=== PATIENT | female | born 1930 | race Caucasian/White ===

== ENCOUNTER 2020-02-26 12:00 | Observation (INO) | payer MEDICARE, OTHER ==
[~2020-02-26] VITALS: Ht 157.5 cm; Wt 70.3 kg
[~2020-02-26 12:00] MED LIST: ASPI-496 PO; CHOL2000 PO; IBUP-1221 PO; LISI1TAB20 PO; LOVA40TA2 PO; MELO15TA6 PO; OXYC-302 PO; PANT40TA3 PO; VIT1TABL32 PO
--- NOTE | 2020-02-26 12:20 | NUR ---
Pt BIB [facility] for a syncopal episode, daughter states "that right before she passed out, she said everything looked yellow", pt has had multiple episodes of emesis since then, clear colored. Pt BP enoute was hypotensive, given 250mL NS and 4mg zofran en route.
[2020-02-26] MEDS ORDERED: CALC1CAP8 PO (12:26)
--- NOTE | 2020-02-26 12:27 | NUR ---
Adam Manzo MD at bs, assessing pt and discussing plan of care, Pt changed into gown, EKG completed, resting in [facility] at bs. pt given warm blanket for comfort, Fluids started per MD order. On monitor, denies additional needs, call light within reach. WCTM.
[2020-02-26] MEDS ORDERED: SODIUM CHLORIDE 0.9%, 500ML IVBOLUS ONE (12:30)
--- NOTE | 2020-02-26 13:01 | NUR ---
Cleaned with sterile water and placed bandaid on pt left wrist skin tear.
[2020-02-26 13:17] LABS: PROTHROMBIN TIME 10.6 Seconds (9.6-11.5)
[2020-02-26 13:18] LABS: ALANINE AMINOTRANSFERASE 15 U/L (12-78); ALBUMIN 3.5 g/dL (3.4-5.0); ANION GAP 8 mmol/L (5-15); CALCIUM 9.9 mg/dL (8.5-10.1); CHLORIDE 104 mmol/L (98-107); CREATININE 1.78 mg/dL (0.55-1.02)
--- NOTE | 2020-02-26 13:20 | NUR ---
pt wheeled to CT via [facility] johnson, denies additional needs, even unlabored respirations, pt making jokes on the way saying "we will see nothing in there" for her CT scan. Daughter waiting in room.
[2020-02-26 13:22] LABS: ALKALINE PHOSPHATASE 75 U/L (45-117); BILIRUBIN,TOTAL 1.1 mg/dL (0.2-1.0); TROPONIN I < 0.015 ng/mL (0.000-0.045)
--- NOTE | 2020-02-26 13:47 | NUR ---
pt back from CT via [facility] john[facility], denies additional needs, even unlabored, call light within reach. Daughter at bedside
--- NOTE | 2020-02-26 14:38 | NUR ---
Lab at bedside for blood draw, pt resting in gurney, NAD, even and unlabored respirations, call light within reach, talking in full sentences, no SOB noted. Daughter at bs. WCTM
--- NOTE | 2020-02-26 15:35 | NUR ---
pt resting in gurney, NAD, even and unlabored respirations, eyes open, call light within reach, talking in full sentences, no SOB noted. Daughter at bs. TM
[2020-02-26 15:36] LABS: BASOPHILS % (AUTO) 0 % (0-1); EOSINOPHILS % (AUTO) 0 % (1-7); LYMPHOCYTES # (AUTO) 0.66 x10^3/uL (1-3.4); LYMPHOCYTES % (AUTO) 8 % (22-44); MD NO; MEAN CORPUSCULAR HEMOGLOBIN 30.3 pg (27.0-34.8); MEAN CORPUSCULAR HGB CONC 33.2 g/dL (32.4-35.8); MEAN CORPUSCULAR VOLUME 91.3 fL (80-100); MEAN PLATELET VOLUME 7.9 fL (7.4-10.4); MONOCYTES # (AUTO) 0.26 x10^3/uL (0.2-0.8); MONOCYTES % (AUTO) 3 % (2-9); NEUTROPHILS # (AUTO) 7.74 x10^3/uL (1.8-6.8); NEUTROPHILS % (AUTO) 89 % (42-75); PLATELET COUNT 261 x10^3/uL (130-400); RED BLOOD COUNT 5.05 x10^6/uL (3.82-5.3); RED CELL DISTRIBUTION WIDTH 15.6 % (9.6-15.2)
[2020-02-26] MEDS ORDERED: POTASSIUM CHLORIDE 20 MEQ TAB.ER.PRT PO ONE (16:00)
[2020-02-26] MEDS ORDERED: SODIUM CHLORIDE 0.9% 1,000 ML IV SCH (16:20)
[2020-02-26] MEDS ORDERED: ONDANSETRON 2MG/ML, 2ML IVPush PRN (16:30)
[2020-02-26] MEDS ORDERED: ACETAMINOPHEN 325 MG TABLET PO PRN (16:30)
[2020-02-26] MEDS ORDERED: hydrALAzine 20 MG/ML, 1ML IVPush PRN (16:30)
[2020-02-26] MEDS ORDERED: LABETALOL 5MG/ML, 20ML IVPush PRN (16:30)
[2020-02-26] MEDS ORDERED: GADOTERATE 7.5 MMOL/15 ML SYR ONE (17:02)
--- NOTE | 2020-02-26 17:18 | NUR ---
pt in MRI.
[2020-02-26] MEDS: POTASSIUM CHLORIDE 20 MEQ TAB.ER.PRT PO SCH (18:32)
[2020-02-26 19:00] VITALS: BP 121/75
[2020-02-26 19:03] VITALS: BP 128/70
[2020-02-26 19:10] VITALS: BP 137/75
[2020-02-26] MEDS: HEPARIN 5,000 UNITS/ML, 1ML SQ SCH (19:43)
[2020-02-27] VITALS (7 sets, daily range): BP systolic 103–124; BP diastolic 60–68
[2020-02-27] MEDS: HEPARIN 5,000 UNITS/ML, 1ML SQ SCH ×3 (03:56→19:48)
[2020-02-27 06:16] LABS: BASOPHILS # (AUTO) 0.03 x10^3/uL (0-0.1); BASOPHILS % (AUTO) 1 % (0-1); EOSINOPHILS % (AUTO) 0 % (1-7); LYMPHOCYTES # (AUTO) 1.22 x10^3/uL (1-3.4); LYMPHOCYTES % (AUTO) 22 % (22-44); MD NO; MEAN CORPUSCULAR HEMOGLOBIN 30.2 pg (27.0-34.8); MEAN CORPUSCULAR HGB CONC 32.9 g/dL (32.4-35.8); MEAN CORPUSCULAR VOLUME 91.6 fL (80-100); MEAN PLATELET VOLUME 7.7 fL (7.4-10.4); MONOCYTES # (AUTO) 0.36 x10^3/uL (0.2-0.8); MONOCYTES % (AUTO) 7 % (2-9); NEUTROPHILS % (AUTO) 71 % (42-75); PLATELET COUNT 248 x10^3/uL (130-400); RED BLOOD COUNT 4.22 x10^6/uL (3.82-5.3); RED CELL DISTRIBUTION WIDTH 16.1 % (9.6-15.2)
[2020-02-27 06:20] LABS: ALBUMIN 2.9 g/dL (3.4-5.0); ANION GAP 4 mmol/L (5-15); CALCIUM 9.4 mg/dL (8.5-10.1); CHLORIDE 106 mmol/L (98-107)
[2020-02-27 06:24] LABS: ALANINE AMINOTRANSFERASE 12 U/L (12-78); ALKALINE PHOSPHATASE 57 U/L (45-117); BILIRUBIN,TOTAL 0.9 mg/dL (0.2-1.0); CREATININE 1.45 mg/dL (0.55-1.02); TOTAL PROTEIN 5.8 g/dL (6.4-8.2)
[2020-02-27] MEDS: PANTOPRAZOLE 40MG TABLET PO SCH (07:47)
[2020-02-27] MEDS: CALCIUM/VITAMIN D3 250-125 TABLET PO SCH (07:47)
[2020-02-27] MEDS: POTASSIUM CHLORIDE 20 MEQ TAB.ER.PRT PO SCH ×2 (07:47→16:41)
[2020-02-27] MEDS: LOVASTATIN 40 MG TABLET PO SCH (07:47)
[2020-02-27] MEDS: SODIUM CHLORIDE 0.9% 1,000 ML IV SCH ×3 (07:47→23:29)
[2020-02-27] MEDS ORDERED: SODIUM CHLORIDE 0.9% 1,000 ML IV SCH (16:20)
[2020-02-28 01:12] VITALS: BP 120/77
[2020-02-28] MEDS: HEPARIN 5,000 UNITS/ML, 1ML SQ SCH (03:57)
[2020-02-28 06:17] LABS: ALBUMIN 2.6 g/dL (3.4-5.0); ANION GAP 4 mmol/L (5-15); CALCIUM 8.6 mg/dL (8.5-10.1); CHLORIDE 109 mmol/L (98-107)
[2020-02-28 06:20] LABS: ALANINE AMINOTRANSFERASE 11 U/L (12-78); ALKALINE PHOSPHATASE 56 U/L (45-117); BILIRUBIN,TOTAL 0.8 mg/dL (0.2-1.0); CREATININE 1.01 mg/dL (0.55-1.02); TOTAL PROTEIN 5.4 g/dL (6.4-8.2)
[2020-02-28 07:16] VITALS: BP 138/81
[2020-02-28] MEDS: POTASSIUM CHLORIDE 20 MEQ TAB.ER.PRT PO SCH (08:09)
[2020-02-28] MEDS: SODIUM CHLORIDE 0.9% 1,000 ML IV SCH (08:09)
[2020-02-28] MEDS: PANTOPRAZOLE 40MG TABLET PO SCH (08:09)
[2020-02-28] MEDS: LOVASTATIN 40 MG TABLET PO SCH (08:09)
[2020-02-28] MEDS: CALCIUM/VITAMIN D3 250-125 TABLET PO SCH (08:10)
== END 2020-02-28 11:29 | disposition home or self-care (01) ==
LOC: ED 12:56 → EDIP 15:35 → INTOOBSV 15:35 → 4EST 18:06
PROVIDERS: ADMIT Internal Medicine; ATTEND Internal Medicine
DX: R55 Syncope and collapse (principal); I95.9 Hypotension, unspecified; E87.6 Hypokalemia; I12.9 Hypertensive chronic kidney disease with stage 1 through stage 4 chronic kidney disease, or unspecified chronic kidney disease; E78.5 Hyperlipidemia, unspecified; N17.9 Acute kidney failure, unspecified; K21.9 Gastro-esophageal reflux disease without esophagitis; N18.3 Chronic kidney disease, stage 3 (moderate); I67.1 Cerebral aneurysm, nonruptured; Z85.3 Personal history of malignant neoplasm of breast; Z79.899 Other long term (current) drug therapy
CPT/HCPCS: 36415; 70450; 70553; 71045; 80053; 84484; 85025; 85610; 85730; 93005; 93306; 93880; 96360; 96361; 96372; 97163; 97165; 99285; A9575; G0378; J1644; J7030; J7040

== ENCOUNTER 2020-08-01 01:21 | Observation (INO) | payer MEDICARE ==
[2020-08-01] VITALS (15 sets, daily range): BP systolic 90–145; BP diastolic 47–89
[~2020-08-01] VITALS: Ht 165.1 cm; Wt 72.7 kg
[~2020-08-01 01:21] MED LIST changes: +CALC1CAP8 PO
--- NOTE | 2020-08-01 01:29 | NUR ---
THIS IS AN 89Y F BIB EMS FROM HOME FOR "SLURRED SPEACH" STROKE SCALE NEG, PER EMS CHANGES IN EKG PT GIVEN 1 DOSE NITRO [employer] LIB[employer], AND ASA. 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 PT SYNCOPAL TODAY WHILE SEATED DENIES FALLS. PT CONNECTED TO ALL MONITORING VSS NADN. NO NEEDS AT THIS TIME
--- NOTE | 2020-08-01 01:40 | NUR ---
PIV STARTED WITHOUT DIFFICULTY PT TOLERATED WELL
--- NOTE | 2020-08-01 01:58 | NUR ---
PER DR. MORA IV OK IN L AC AT THIS TIME DOES NOT NEED TO BE REMOVED PT DAUGHTER INSISTS
[2020-08-01] MEDS ORDERED: ONDANSETRON 2MG/ML, 2ML ONE ×2 (01:59→07:34)
[2020-08-01] MEDS ORDERED: ONDANSETRON 2MG/ML, 2ML IVPush ONE (02:00)
--- NOTE | 2020-08-01 02:00 | NUR ---
PT DAUGHTER STS LAST TIME PT WAS HERE FOUND ANERYSM AND REFERRED TO NEURO BUT DID NOT GET APT BECAUSE THEY "NEVER CALL BACK OR ANSWER THE PHONE"
[2020-08-01 02:21] LABS: ALANINE AMINOTRANSFERASE 14 U/L (12-78); ALBUMIN 3.4 g/dL (3.4-5.0); ANION GAP 9 mmol/L (5-15); CALCIUM 10.1 mg/dL (8.5-10.1); CHLORIDE 91 mmol/L (98-107); CREATININE 2.28 mg/dL (0.55-1.02)
[2020-08-01 02:23] LABS: BASOPHILS # (AUTO) 0.02 x10^3/uL (0-0.1); BASOPHILS % (AUTO) 0 % (0-1); EOSINOPHILS # (AUTO) 0.15 x10^3/uL (0-0.4); EOSINOPHILS % (AUTO) 3 % (1-7); LYMPHOCYTES # (AUTO) 1.19 x10^3/uL (1-3.4); LYMPHOCYTES % (AUTO) 24 % (22-44); MD NO; MEAN CORPUSCULAR HEMOGLOBIN 29.5 pg (27.0-34.8); MEAN CORPUSCULAR HGB CONC 32.5 g/dL (32.4-35.8); MEAN PLATELET VOLUME 7.2 fL (7.4-10.4); MONOCYTES # (AUTO) 0.37 x10^3/uL (0.2-0.8); MONOCYTES % (AUTO) 7 % (2-9); NEUTROPHILS # (AUTO) 3.31 x10^3/uL (1.8-6.8); NEUTROPHILS % (AUTO) 66 % (42-75); PLATELET COUNT 275 x10^3/uL (130-400); RED BLOOD COUNT 4.53 x10^6/uL (3.82-5.3); RED CELL DISTRIBUTION WIDTH 15.6 % (9.6-15.2)
[2020-08-01 02:25] LABS: ALKALINE PHOSPHATASE 89 U/L (45-117); BILIRUBIN,TOTAL 1.2 mg/dL (0.2-1.0); TOTAL PROTEIN 6.3 g/dL (6.4-8.2); TROPONIN I < 0.015 ng/mL (0.000-0.045)
--- NOTE | 2020-08-01 02:43 | NUR ---
CT CALLED TO FOLLOW UP ON CONTRAST USE
[2020-08-01] MEDS ORDERED: SODIUM CHLORIDE 0.9% 1,000ML IVBOLUS ONE (03:00)
--- NOTE | 2020-08-01 03:23 | NUR ---
CT CALLED IV INFILTRATED DURING SCAN, NEW PIV PLACED SCAN TO RESUME AT THIS TIME
--- NOTE | 2020-08-01 03:41 | NUR ---
PT BACK FROM CT RESTING ON [facility]
[2020-08-01] MEDS ORDERED: OMNIPAQUE 350 MG/ML, 100ML BOTTLE ONE (04:24)
[2020-08-01] MEDS ORDERED: ONDANSETRON 2MG/ML, 2ML IVPush PRN ×2 (04:30→05:00)
--- NOTE | 2020-08-01 04:30 | NUR ---
PT ASSISTED TO BSC X1 ASSIST, PT BEDDING AND GOWN CHANGED AT REQ. DAUGHTER REMAINS AT BEDSIDE
[2020-08-01] MEDS ORDERED: SODIUM CHLORIDE 0.9% 1,000 ML IV SCH (04:31)
--- NOTE | 2020-08-01 04:45 | NUR ---
HOSPTITALIST AT BEDSIDE FOR ADMIT
[2020-08-01] MEDS ORDERED: hydrALAzine 20 MG/ML, 1ML IVPush PRN (05:00)
[2020-08-01] MEDS ORDERED: METOCLOPRAMIDE 5 MG/ML, 2ML IVPush PRN (05:00)
[2020-08-01] MEDS ORDERED: DOCUSATE 100 MG CAPSULE PO PRN (05:00)
[2020-08-01] MEDS ORDERED: ACETAMINOPHEN 325 MG TABLET PO PRN (05:00)
[2020-08-01 05:09] LABS: TROPONIN I < 0.015 ng/mL (0.000-0.045)
--- NOTE | 2020-08-01 06:43 | NUR ---
PT DAUGHTER IN ROOM FOR COMFORT. SOLOMON
--- NOTE | 2020-08-01 06:57 | NUR ---
REPORT TO ROBERT HERNANDEZORE DIGGER OF CARE AT THIS TIME
--- NOTE | 2020-08-01 07:07 | NUR ---
RECEIVED REPORT FROM MARY. PT FOUND RESTING COMFORTABLY WITH DAUGHTER BEDSIDE. PT ADVISED THAT WE ARE WAITING FOR A ROOM FOR HER TO BE ADMITTED.
[2020-08-01] MEDS ORDERED: HEPARIN 5,000 UNITS/ML, 1ML ONE (07:26)
[2020-08-01] MEDS: HEPARIN 5,000 UNITS/ML, 1ML SQ SCH ×3 (07:30→23:28)
--- NOTE | 2020-08-01 07:49 | NUR ---
Sae garza in ED - 08/01/20 at 0842 by COSME GOING TO SURGERY AT 1300 FOR EGD. RAPID COVID HAS BEEN ORDERED.
[2020-08-01 08:36] LABS: ANION GAP 8 mmol/L (5-15); CALCIUM 10.1 mg/dL (8.5-10.1); CHLORIDE 94 mmol/L (98-107); CREATININE 1.83 mg/dL (0.55-1.02)
--- NOTE | 2020-08-01 08:45 | NUR ---
REPORT GIVEN TO SHAR
--- NOTE | 2020-08-01 08:51 | NUR ---
PT COMPLAINING OF STOMACH DISCOMOFRT AND NAUSEA. MEDICATED PER JAN.
[2020-08-01] MEDS: LOVASTATIN 40 MG TABLET PO SCH (08:52)
--- NOTE | 2020-08-01 09:10 | NUR ---
HOSPITALIST AT BEDSIDE
[2020-08-01] MEDS: SODIUM CHLORIDE 0.9% 1,000 ML IV SCH ×2 (09:15→21:10)
[2020-08-01 10:15] LABS: TROPONIN I < 0.015 ng/mL (0.000-0.045)
[2020-08-01] MEDS: PANTOPRAZOLE 40MG TABLET PO SCH (10:44)
[2020-08-01 11:30] LABS: MICROSCOPIC AUTO
[2020-08-01 11:32] LABS: CHLORIDE,URINE RANDOM 53 mmol/L; POTASSIUM,URINE RANDOM 9 mmol/L; SODIUM,URINE RANDOM 53 mmol/L
[2020-08-01] MEDS ORDERED: ALLO100T30 PO (11:37)
[2020-08-01 11:41] LABS: OSMOLALITY,URINE 230 mOsm/kg (500-850)
[2020-08-01 14:23] LABS: ANION GAP 8 mmol/L (5-15); CHLORIDE 96 mmol/L (98-107); CREATININE 1.53 mg/dL (0.55-1.02)
--- NOTE | 2020-08-01 17:50 | NUR ---
ALLAN MARQUES - Fall Risk Medication(s) present and receiving anticoagulants. Signed: 08/01/20 at 1751 by Leo GONZALES
[2020-08-01 20:55] LABS: ANION GAP 8 mmol/L (5-15); CALCIUM 9.6 mg/dL (8.5-10.1); CHLORIDE 98 mmol/L (98-107); CREATININE 1.44 mg/dL (0.55-1.02)
[2020-08-02 01:01] VITALS: BP 103/63
[2020-08-02 05:26] LABS: BASOPHILS # (AUTO) 0.03 x10^3/uL (0-0.1); BASOPHILS % (AUTO) 1 % (0-1); EOSINOPHILS # (AUTO) 0.09 x10^3/uL (0-0.4); EOSINOPHILS % (AUTO) 2 % (1-7); LYMPHOCYTES # (AUTO) 0.94 x10^3/uL (1-3.4); LYMPHOCYTES % (AUTO) 23 % (22-44); MD NO; MEAN CORPUSCULAR HEMOGLOBIN 29.3 pg (27.0-34.8); MEAN CORPUSCULAR HGB CONC 32.4 g/dL (32.4-35.8); MEAN PLATELET VOLUME 7.6 fL (7.4-10.4); MONOCYTES # (AUTO) 0.39 x10^3/uL (0.2-0.8); MONOCYTES % (AUTO) 9 % (2-9); NEUTROPHILS # (AUTO) 2.65 x10^3/uL (1.8-6.8); NEUTROPHILS % (AUTO) 65 % (42-75); PLATELET COUNT 248 x10^3/uL (130-400); RED CELL DISTRIBUTION WIDTH 16.5 % (9.6-15.2)
[2020-08-02 05:46] LABS: ANION GAP 8 mmol/L (5-15); CALCIUM 9.5 mg/dL (8.5-10.1); CHLORIDE 102 mmol/L (98-107)
[2020-08-02 05:49] LABS: CREATININE 1.15 mg/dL (0.55-1.02)
[2020-08-02 06:40] VITALS: BP 103/63
[2020-08-02] MEDS: HEPARIN 5,000 UNITS/ML, 1ML SQ SCH ×2 (08:26→15:30)
[2020-08-02] MEDS: LOVASTATIN 40 MG TABLET PO SCH (08:27)
[2020-08-02] MEDS: PANTOPRAZOLE 40MG TABLET PO SCH (08:27)
[2020-08-02 13:07] VITALS: BP 133/83
== END 2020-08-02 18:17 | disposition home or self-care (01) ==
LOC: ED 03:14 → INTOOBSV 04:19 → EDIP 04:19 → 5SO 09:36
PROVIDERS: ADMIT Family Medicine; ATTEND Family Medicine
DX: E87.1 Hypo-osmolality and hyponatremia (principal); N17.9 Acute kidney failure, unspecified; N18.9 Chronic kidney disease, unspecified; R11.2 Nausea with vomiting, unspecified; E80.6 Other disorders of bilirubin metabolism; E78.5 Hyperlipidemia, unspecified; M10.9 Gout, unspecified; I12.9 Hypertensive chronic kidney disease with stage 1 through stage 4 chronic kidney disease, or unspecified chronic kidney disease; G43.909 Migraine, unspecified, not intractable, without status migrainosus; K21.9 Gastro-esophageal reflux disease without esophagitis; E86.0 Dehydration; Z85.3 Personal history of malignant neoplasm of breast; Z87.891 Personal history of nicotine dependence; Z79.899 Other long term (current) drug therapy
CPT/HCPCS: 36415; 70450; 70496; 70498; 80048; 80053; 81001; 82436; 83880; 83930; 83935; 83970; 84133; 84300; 84484; 85025; 87086; 93005; 96361; 96372; 96374; 96376; 97161; 99285; G0378; J1644; J2405; J7030; Q9967; 96375